=== PATIENT | female | born 1960 | race Caucasian/White ===

== ENCOUNTER 2018-07-05 15:48 | Emergency (ER) | payer OTHER ==
[2018-07-05 16:25] VITALS: RESP 18
[2018-07-05 17:28] LABS: HCG,QUALITATIVE URINE NEGATIVE (NEGATIVE)
[2018-07-05 17:30] LABS: SQUAMOUS EPITHIAL 10 /hpf (0-5); URINE BACTERIA FEW (<OCC); URINE BILIRUBIN NEGATIVE (NEGATIVE); URINE BLOOD NEGATIVE (NEGATIVE); URINE CLARITY Hazy (Clear); URINE COLOR Yellow (YELLOW); URINE GLUCOSE (UA) NORMAL (Normal); URINE PROTEIN NEGATIVE (NEGATIVE); URINE UROBILINOGEN NORMAL mg/dL (0.2-1.0)
[2018-07-05 17:31] LABS: URINE LEUKOCYTE ESTERASE 1+ Leu/uL (Negative)
--- NOTE | 2018-07-05 17:46 | C.PDOC ---
History Of Present Illness 57 y/o F c PMHx spinal surgery, herniated disc on Gabapentin p/w back pain x more than 3 months. Patient states she has had this chronic pain that begins in the R flank, radiates up the R sided back, radiates to the R sided abdomen, and radiates down the R leg. She has seen her PMD Vicente multiple times during this period and has had an MRI which showed a herniated disc. She has also had lab work done which was negative for Lupus, hepatitis, etc. She was also treated for shingles 2 weeks ago but states that the rash disappeared within 2 days and was only red, did not seem shingles like in nature. She states that she came to the ED today to find a diagnosis as she is not confident that the testing she already has had done has diagnosed what is causing this pain. She denies fever, chills, chest pain, dyspnea, vomiting, diarrhea, dysuria, urinary frequency, motor weakness. Time Seen by Provider: 07/05/18 17:27 Chief Complaint (Nursing): Abdominal Pain Past Medical History Vital Signs: Last Vital Signs Temp 97.5 F L 07/05/18 19:03 Pulse 64 07/05/18 19:03 Resp 18 07/05/18 19:03 BP 120/68 07/05/18 19:03 Pulse Ox 100 07/05/18 19:03 - Medical History PMH: Alzheimer's Disease, Gall Bladder Disease Surgical History: Cholecystectomy Family History: States: Unknown Family Hx - Social History Hx Alcohol Use: No Hx Substance Use: No - Immunization History Hx Tetanus Toxoid Vaccination: No Hx Influenza Vaccination: Yes Hx Pneumococcal Vaccination: No Review Of Systems Except As Marked, All Systems Reviewed And Found Negative. Constitutional: Negative for: Fever Cardiovascular: Negative for: Chest Pain Physical Exam - Physical Exam Additional Physical Exam Comments: Constitutional: No acute distress. Head: Normocephalic. Atraumatic. Eyes: PERRL. ENT: Moist mucous membranes. Neck: Supple. Cardiovascular: Regular rate. Radial pulse 2+ bilaterally. Chest: No tenderness. Respiratory: Clear to auscultation bilaterally. GI: Soft. Nontender. Nondistended. Back: No CVA tenderness. No midline tenderness. Musculoskeletal: No tenderness or swelling of extremities. Skin: No rash. Neurologic: Alert, no focal deficit. ED Course And Treatment - Laboratory Results Result Diagrams: 07/05/18 17:45 07/05/18 17:45 O2 Sat by Pulse Oximetry: 98 Medical Decision Making Medical Decision Making: Will evaluate further with labs/urine/CT imaging. Patient is s/p cholecystectomy prior to her spinal surgery. I informed patient of limitations of Emergency Department testing. IMPRESSION: Dilatation of the common bile duct presumed status post cholecystectomy. If there is clinical evidence of biliary obstruction, correlation is recommended with MRCP. Uterine leiomyoma. Otherwise unremarkable study. Labs unremarkable. Antibiotics for possible UTI. F/u Dr. Zhang, return to ED for worsening pain, fever, vomiting, dyspnea, or any other problem. Disposition - Disposition Referrals: Ena Zhang MD [Staff Provider] - Disposition: HOME/ ROUTINE Disposition Time: 19:44 Condition: STABLE Prescriptions: Ciprofloxacin [Cipro] 500 mg PO BID #[id number] tab Instructions: Flank Pain Forms: [facility] (I[place]ic) - Clinical Impression Clinical Impression: Flank pain - Scribe Statement The provider has reviewed the documentation as recorded by the Sharonibtomi Carbajal All medical record entries made by the Sharonibtomi were at my direction and personally dictated by me. I have reviewed the chart and agree that the record accurately reflects my personal performance of the history, physical exam, medical decision making, and the department course for this patient. I have also personally directed, reviewed, and agree with the discharge instructions and disposition.
[2018-07-05 17:48] LABS: BASO # 0.1 K/uL (0.0-0.2); BASO % 0.9 % (0.0-2.0); EOS # 0.2 K/uL (0.0-0.7); EOS % 2.3 % (0.0-4.0); HEMOGLOBIN 14.2 g/dL (11.0-16.0); LYMPH % 29.2 % (20.0-40.0); MEAN CELL VOLUME 85.4 fL (81.0-99.0); MONO # 0.7 K/uL (0.0-0.8); MONO % 10.5 % (0.0-10.0); NEUT # 3.9 K/uL (1.8-7.0); NEUT % 57.1 % (50.0-75.0); NRBC % 0.2 % (0.0-2.0); RBC 4.89 Mil/uL (3.80-5.20); RED CELL DISTRIBUTION WIDTH 13.6 % (11.5-14.5); WHITE BLOOD COUNT 6.8 K/uL (4.8-10.8)
[2018-07-05 18:02] LABS: ALB/GLOB RATIO 1.2 (1.0-2.1); ALBUMIN 4.7 g/dL (3.5-5.0); ALT/SGPT 29 U/L (9-52); AST/SGOT 22 U/L (14-36); BLOOD UREA NITROGEN 14 mg/dL (7-17); CALCIUM 10.2 mg/dl (8.6-10.4); GFR AFRICAN-AMERICAN > 60; GFR NON-AFRICAN AMERICAN > 60; LIPASE 73 U/L (23-300)
[2018-07-05] MEDS ORDERED: Iodixanol 320 MG/ML 100 ML BOTTLE IV ONE (18:19)
[2018-07-05 20:54] VITALS: BP 126/74; PULSE 65; TEMP 98.8; O2SAT 99
--- NOTE | 2018-07-06 08:30 | CT ---
Date of service: 07/05/2018 PROCEDURE: CT Abdomen and Pelvis without intravenous contrast HISTORY: Right-sided abdominal pain COMPARISON: None. TECHNIQUE: Multiple contiguous axial images were performed through the abdomen and pelvis with the use of intravenous contrast. Subsequently, sagittal and coronal reformatted images were obtained. Radiation dose: Total exam DLP = 925 mGy-cm. This CT exam was performed using one or more of the following dose reduction techniques: Automated exposure control, adjustment of the mA and/or kV according to patient size, and/or use of iterative reconstruction technique. FINDINGS: LOWER THORAX: 2 millimeter subpleural nodule seen at the lateral aspect of the left lower lobe anteriorly. LIVER: Mild fatty infiltration of the liver. Mild intrahepatic biliary ductal dilatation. GALLBLADDER AND BILE DUCTS: Status post cholecystectomy. Dilated common bile duct measuring up to 11 millimeters. PANCREAS: Unremarkable. No gross lesion or ductal dilatation. SPLEEN: Unremarkable. Splenules. ADRENALS: Unremarkable. No mass. KIDNEYS AND URETERS: Unremarkable. No hydronephrosis. No solid mass. VASCULATURE: Retro aortic left renal vein is noted. BOWEL: Unremarkable. No obstruction. No gross mural thickening. APPENDIX: No findings to suggest acute appendicitis. PERITONEUM: Unremarkable. No free fluid. No free air. LYMPH NODES: Unremarkable. No enlarged lymph nodes. BLADDER: Unremarkable. REPRODUCTIVE: 2.4 centimeter posterior fundal subserosal leiomyoma. BONES: Small posterior disc osteophyte complex at the L4-5 level. Probable vertebral body hemangioma in the T11 vertebral body level. OTHER FINDINGS: None. IMPRESSION: Dilatation of the common bile duct presumed status postcholecystectomy. If there is clinical evidence of biliary obstruction, correlation is recommended with MRCP. Uterine leiomyoma. Additional findings as above. These findings were preliminarily reported at 7:43 p.m. on 07/05/[address] Josefina Xavier from [email or web address].
== END 2018-07-05 20:54 | disposition home or self-care (01) ==
LOC: C.ER 15:48
DX: R10.9 Unspecified abdominal pain (principal); G30.9 Alzheimer's disease, unspecified; Z90.49 Acquired absence of other specified parts of digestive tract
CPT/HCPCS: 74177; 80053; 81001; 82550; 83690; 84703; 85025; 96374; 99285; J1885; Q9967